=== PATIENT | female | born 1980 | race African-American/Black ===

== ENCOUNTER 2024-03-26 14:36 | Emergency (ER) | payer OTHER ==
[~2024-03-26] VITALS: Ht 165.1 cm; Wt 77.1 kg
[2024-03-26] MEDS: KETOROLAC TROMETHAMINE 15 MG INJ IVP ONE (14:45)
[2024-03-26] MEDS ORDERED: METOCLOPRAMIDE HCL 10 MG/2 ML VIAL ONE (15:03)
[2024-03-26] MEDS ORDERED: KETOROLAC TROMETHAMINE 15 MG INJ ONE (15:03)
[2024-03-26] MEDS: METOCLOPRAMIDE HCL 10 MG/2 ML VIAL IV ONE (15:04)
[2024-03-26 15:05] LABS: BASOPHILS % (AUTO) 0.6 % (0.0-2.0); EOSINOPHILS # (AUTO) 0.1 K/uL (0.0-0.7); EOSINOPHILS % (AUTO) 0.9 % (0.0-7.0); HEMATOCRIT 39.2 % (31.2-41.9); HEMOGLOBIN 12.8 g/dL (10.9-14.3); LYMPHOCYTES # (AUTO) 1.8 K/uL (0.8-4.8); LYMPHOCYTES % (AUTO) 27.3 % (20.5-51.5); MEAN CORPUSCULAR HEMOGLOBIN 29.3 uug (24.7-32.8); MEAN CORPUSCULAR HGB CONC 33 g/dL (32.3-35.6); MEAN CORPUSCULAR VOLUME 89.6 fL (75.5-95.3); MONOCYTES # (AUTO) 0.3 K/uL (0.1-1.30); MONOCYTES % (AUTO) 4.5 % (0.0-11.0); NEUTROPHILS # (AUTO) 4.3 K/uL (1.8-8.9); NEUTROPHILS % (AUTO) 66.7 % (38.5-71.5); PLATELET COUNT (AUTO) 227 K/uL (179-408); RED BLOOD CELL COUNT(AUTO) 4.37 MIL/uL (3.63-4.92); RED CELL DISTRIBUTION WIDTH 14.1 % (12.3-17.7); WHITE BLOOD COUNT (AUTO) 6.4 K/uL (3.8-11.8)
[2024-03-26 15:23] LABS: ALANINE AMINOTRANSFERASE 17 U/L (14-59); ALBUMIN 4.4 g/dL (3.4-5.0); ALKALINE PHOSPHATASE 69 U/L (50-136); ASPARTATE AMINOTRANSFERASE 9 U/L (15-37); BILIRUBIN,TOTAL 0.9 mg/dL (0.2-1.0); CARBON DIOXIDE 23 mmol/L (21-32); CHLORIDE 106 mmol/L (98-107); GLUCOSE 114 mg/dL (74-106); LIPASE 55 U/L (16-77); POTASSIUM 3.8 mmol/L (3.5-5.1); SODIUM SERUM 142 mmol/L (136-145); TOTAL PROTEIN, SERUM 7.9 g/dL (6.4-8.2); UREA NITROGEN, BLOOD 9 mg/dL (7-18)
[2024-03-26 15:24] LABS: DIFFERENTIAL COMMENT 1
[2024-03-26 15:31] LABS: PREGNANCY TEST SERUM QUAN < 1 miul/L (0-6)
[2024-03-26 15:38] LABS: CALCIUM 9.7 mg/dL (8.5-10.1)
[2024-03-26 15:39] LABS: BILIRUBIN,DIRECT 0.2 mg/dL (0.0-0.2)
[2024-03-26 16:12] LABS: *BLOOD, URINE NEGATIVE (NEGATIVE); *CLARITY,URINE CLOUDY (CLEAR); *COLOR,URINE YELLOW (YELLOW); *KETONES,URINE TRACE (NEGATIVE); *PROTEIN,URINE 1+ (NEGATIVE); *UROBILINOGEN,URINE 0.2 E.U./dl (NORMAL); LEUKOCYTE ESTERASE ,URINE TRACE (NEGATIVE); NITRITE, URINE NEGATIVE (NEGATIVE); UGLUCOSE NEGATIVE (NEGATIVE)
[2024-03-26 16:31] LABS: *BILIRUBIN,URIN 1+ (NEGATIVE)
[2024-03-26 16:32] LABS: *URINE HCG, QUAL NEGATIVE (NEGATIVE)
[2024-03-26] MEDS ORDERED: IBUP-1953 PO (16:41)
[2024-03-26] MEDS ORDERED: METO-295 PO (16:41)
[2024-03-26 17:04] VITALS: BP 130/80; TEMP 97.8; O2SAT 100
[2024-03-26 17:10] LABS: RBC,URINE 0-3 /HPF (0-3)
== END 2024-03-26 17:00 | disposition home or self-care (01) ==
LOC: ER 14:36
DX: A04.9 Bacterial intestinal infection, unspecified (principal); R10.2 Pelvic and perineal pain; Z98.890 Other specified postprocedural states
CPT/HCPCS: 99285; 74176; 96374; 76705; 96375; 80076; 80048; 81001; 84703; 83690; 85025; 85730; 84484; 84702; 36415; 93005; J1885; J2765; A4606; A4663